=== PATIENT | female | born 1950 ===

== ENCOUNTER 2024-03-20 10:31 | Outpatient (CLI) | payer OTHER ==
[~2024-03-20 10:31] MED LIST: SYNTHROID137 MCG PO
== END 2024-03-20 10:35 | disposition home or self-care (01) ==
LOC: RAD 10:31
PROVIDERS: ATTEND Orthopaedic Surgery
DX: M25.571 Pain in right ankle and joints of right foot (principal); M25.572 Pain in left ankle and joints of left foot